=== PATIENT | male | born 1985 | race African-American/Black ===

== ENCOUNTER 2020-02-21 13:30 | Emergency (ER) | payer BC ==
[~2020-02-21] VITALS: Ht 177.8 cm; Wt 136.0 kg
[2020-02-21] MEDS ORDERED: IPRATROPIUM BROMIDE (0.02%) 0.5MG/2.5ML NEB HHN STA (15:12)
[2020-02-21] MEDS ORDERED: ALBUTEROL (0.083%) 2.5MG/3ML NEB HHN STA (15:12)
[2020-02-21] MEDS ORDERED: PREDNISONE 20MG TABLET PO STA (15:12)
[2020-02-21] MEDS ORDERED: IBUPROFEN 600MG TABLET PO ONE (15:15)
[2020-02-21] MEDS ORDERED: ALBUTEROL 6.7GM HFA INHALER ORI ONE (15:30)
[2020-02-21 16:04] VITALS: BP 130/80
== END 2020-02-21 16:39 | disposition home or self-care (01) ==
LOC: ER 13:30
DX: J45.901 Unspecified asthma with (acute) exacerbation (principal); I10 Essential (primary) hypertension
CPT/HCPCS: 71045; 93005; 94640; 99283; J7512